=== PATIENT | female | born 1955 | race Caucasian/White ===

== ENCOUNTER 2018-03-22 14:06 | Day surgery (SDC) | payer OTHER ==
[~2018-03-22 14:06] MED LIST: Dexamethasone 20 MG/5 ML VIAL ONE; Glycopyrrolate 0.2 MG/ML 5 ML SYRINGE ONE; Lidocaine 1% PF 5 ML VIAL ONE; Ondansetron PF 4 MG/2 ML Vial ONE; PROPOFOL 200 MG/20 ML VIAL ONE
[2018-03-22 15:11] LABS: #Basophils 0.1 thou/uL (0.0-0.2); #Lymphocytes 1.9 thou/uL (1.20-3.40); #Monocytes 1.2 thou/uL (0.11-0.59); #Neutrophils 9.7 thou/uL (1.40-6.50); %Basophils 0.4 % (0.0-1.0); %Eosinophils 0.1 % (0.0-10.0); %Lymphocytes 14.5 % (21.0-51.0); %Monocytes 9.4 % (0.0-10.0); %Neutrophils 75.6 % (42.0-75.0); Hemoglobin 14.2 g/dL (12.0-16.0); Mean Corpuscular HGB CONC 31.9 g/dL (32.0-36.0); Mean Corpuscular Hemoglobin 26.7 pg (27.0-31.0); Mean Corpuscular Volume 83.6 fL (78.0-98.0); Mean Platelet Volume 7.1 fL (7.4-10.4); Platelet Count 203 thou/uL (130-400); RBC Distribution Width 13.8 % (11.5-14.5); Red Blood Cell (RBC) Count 5.33 mill/uL (4.20-5.40); White Blood Cell (WBC) Count 12.9 thou/uL (4.8-10.8)
[2018-03-22] MEDS ORDERED: Ketorolac Tromethamine 30 MG/ML VIAL ONE (15:26)
[2018-03-22 15:28] LABS: ALT (SGPT) 18 U/L (8-55); AST (SGOT) 17 U/L (5-34); Alkaline Phosphatase 66 U/L (40-150); Anion Gap 17 mmol/L (10-20); BUN (Urea Nitrogen) 10 mg/dL (9.8-20.1); Bilirubin, Total 1.4 mg/dL (0.2-1.2); Calc. Creatinine Clearance 0 mL/min (70-130); Calcium 10.4 mg/dL (7.8-10.44); Carbon Dioxide 27 mmol/L (22-29); Chloride 98 mmol/L (98-107); Estimated GFR-MDRD 75; Globulin 4.2 g/dL (2.4-3.5); Glucose 127 mg/dL (70-105); Lipase 8 U/L (8-78); Potassium 3.7 mmol/L (3.5-5.1); Protein, Total 8.2 g/dL (6.0-8.3); Sodium 138 mmol/L (136-145)
--- NOTE | 2018-03-22 16:07 | ULT ---
SONOGRAM RIGHT UPPER QUADRANT: 03/22/18 HISTORY: Right upper quadrant pain. FINDINGS: Multiple shadowing mobile stones are present within the dependent portion of the gallbladder lumen. P atient was reportedly not tender over the gallbladder fossa at the time of the exam. Gallbladder is s omewhat distended at 11.3 cm. No pericholecystic fluid or gallbladder wall thickening. Common duct is upper limits of normal at 0.7 cm. Liver is unremarkable. No free fluid. IMPRESSION: Cholelithiasis. Findings of biliary obstruction include gallbladder distention and common bile duct that is upper sosa its of normal in caliber. Clinical correlation regarding other signs and symptoms of acute cholecysti tis and biliary obstruction is required. Patient was reportedly not tender at the gallbladder fossa a t the time of the exam. If needed, radionuclide hepatobiliary scan could be used to evaluate for bili santiago patency. POS: ALVIN
[2018-03-22] MEDS ORDERED: Fentanyl 100 MCG/2 ML VIAL ONE (16:56)
[2018-03-22] MEDS ORDERED: Bupivacaine/Epinephrine 0.25% 30 ML VIAL ONE (17:28)
[2018-03-22] MEDS ORDERED: ceFOXitin 1 GM VIAL ONE (17:34)
--- NOTE | 2018-03-22 19:21 | HP ---
CHIEF COMPLAINT: Right upper quadrant abdominal pain. HISTORY OF PRESENT ILLNESS: The patient is a 62-year-old white female. She presented to the [facility] complaining of 3 day history of abdominal pain. She has had nausea and poor appetite. She gives one history of similar symptoms a few years ago that was never followed up . In the emergency room, laboratory studies revealed elevated white blood cell count of 12.8. She had mild elevation of bilirubin at 1.4. Gallbladder ultrasound was obtained revealing evidence of cholec ystitis and cholelithiasis. There is no evidence of significant ductal dilatation (7 mm). She is tr ansferred to this facility for further evaluation and treatment by myself. PAST MEDICAL HISTORY: Rheumatoid arthritis and depression. PAST SURGICAL HISTORY: Hysterectomy. MEDICATIONS: Zoloft, Detrol, Plaquenil, leflunomide, Remicade. ALLERGIES: No known drug allergies. PERSONAL/SOCIAL HISTORY: She does not smoke. She drinks alcohol occasionally. She is , but her is working out of state currently. She is here with her son. She has 1 other child. Laura hernandez lives in [place] and her primary care physician is Dr. Ruiz. REVIEW OF SYSTEMS: Otherwise unremarkable. FAMILY HISTORY: Noncontributory. PHYSICAL EXAMINATION: VITAL SIGNS: She is afebrile, but she is tachycardic with a heart rate of 115. Blood pressure is wi thin normal limits. GENERAL: She is well-developed, well-nourished, pleasant white female resting in bed and in no acute distress. She is alert and oriented x3. HEENT: Unremarkable. NECK: Supple without mass or tenderness. LUNGS: Clear to auscultation throughout. CARDIAC: Regular rate and rhythm without murmur. ABDOMEN: Somewhat obese but soft. She has focal tenderness in the right upper quadrant with obvious guarding to deep palpation in this area. There is no area of other discomfort. EXTREMITIES: Unremarkable. LABORATORY DATA: As mentioned above. Additionally, her lipase level is normal. ASSESSMENT: Patient with acute cholecystitis. PLAN: Laparoscopic cholecystectomy. I discussed the operation in detail with the patient as well as potential risks. She understands and agrees to proceed with surgery at this time.
[2018-03-22] MEDS ORDERED: HYDROcodone/Acetaminophen 5/325 mg Tablet ONE (19:54)
--- NOTE | 2018-03-23 00:53 | OP ---
DATE OF PROCEDURE: 03/22/2018 PREOPERATIVE DIAGNOSIS: Acute cholecystitis. POSTOPERATIVE DIAGNOSIS: Acute cholecystitis. OPERATION PERFORMED: Laparoscopic cholecystectomy. SURGEON: Yaniv Lua MD ANESTHESIA: General endotracheal. INDICATIONS: The patient is a 62-year-old white female. She presented to the emergency room with fi ndings consistent with acute cholecystitis, taken to the operating room at this time for laparoscopic cholecystectomy. DESCRIPTION OF PROCEDURE: Informed consent was obtained. The patient was taken to the operating jennifer m where general endotracheal anesthesia obtained with the patient in the supine position. prep ped with ChloraPrep and draped in sterile fashion. Of note, she had a particularly deep and a dirty umbilicus. Local anesthetic was infiltrated using 0.25% Marcaine with epinephrine. An 11 mm infraumbilical inci stacy was created through which a Veress needle was passed into the peritoneal cavity and pneumoperito neum established using carbon dioxide up to a pressure of 15 mmHg. An 11-mm trocar was passed throug h this same incision. Laparoscopic camera was passed through this port. Under direct vision, three additional 5 mm right upper quadrant ports were placed. Attention was turned to the gallbladder. Th is was initially completely covered with omentum. I was able to bluntly mobilize the omentum away fr om this, revealing a severely inflamed and distended gallbladder. This was entirely full and could n ot be grasped. I used needle decompression to aspirate the fluid, which was hydropic. I was then ab le to grasp the gallbladder and retracted in cephalad direction. I was able to continue bluntly mobi lizing the adhesions away from the apex. The apex was grasped and retracted laterally and inferiorly . Careful dissection was carried out the apex of the gallbladder to identify the cystic duct and cys tic artery. These were each dissected circumferentially and divided between clips within the a bdomen. The duct was incised prior to ligating it distally and there was no evidence of any stone wi thin the cystic duct. There was efflux of clear bile from this. The gallbladder was then carefully dissected out of the gallbladder fossa using electrocautery. Meti culous hemostasis was maintained. The gallbladder was placed in a specimen retrieval sac, which was removed through the umbilicus. Due to the size of the gallbladder, the fascial opening had to be ext ended with scissors. The fascial defect was then closed with a [id number] suture of 0 Vicryl us ing a GraNee needle. Right upper quadrant was irrigated and all irrigant was aspirated. There was n o evidence of any bleeding or bile leak. All ports and instruments were removed under direct vision. Pneumoperitoneum was carefully evacuated. A 0.25% Marcaine with epinephrine was infiltrated at eac h port site. Skin edges approximated with 4-0 Monocryl subcuticular suture and Dermabond was placed externally. There were no complications. The patient tolerated the procedure well and was taken to recovery room in stable condition.
== END 2018-03-22 20:30 | disposition home or self-care (01) ==
LOC: SCSER 14:06 → SDC 16:16
PROVIDERS: ATTEND Specialist
PROC: 0FT44ZZ Resection of Gallbladder, Percutaneous Endoscopic Approach (ICD-10-PCS; principal; 2018-03-22)
DX: K80.00 Calculus of gallbladder with acute cholecystitis without obstruction (principal); K82.8 Other specified diseases of gallbladder; F32.9 Major depressive disorder, single episode, unspecified; M06.9 Rheumatoid arthritis, unspecified; Z79.2 Long term (current) use of antibiotics; Z79.899 Other long term (current) drug therapy
CPT/HCPCS: 76705; 80053; 83690; 85025; 88304; 96361; 96374; J0694; J1100; J1885; J2001; J2405; J2704; J3010

== ENCOUNTER 2024-12-20 15:46 | Outpatient (CLI) | payer MEDICARE | END 2024-12-20 15:47 | disposition home or self-care (01) | LOC: ULT 15:46 | PROVIDERS: ATTEND Internal Medicine | DX: I82.890 Acute embolism and thrombosis of other specified veins (principal); I82.442 Acute embolism and thrombosis of left tibial vein ==